=== PATIENT | female | born 1990 | race Two or more races ===

== ENCOUNTER 2018-01-13 23:10 | Emergency (ER) | payer SELFPAY ==
[~2018-01-13] VITALS: Ht 160 cm; Wt 82.0 kg
[2018-01-14 02:02] LABS: CLARITY URINE CLEAR (CLEAR); COLOR URINE YELLOW (YELLOW); KETONES URINE TRACE (NEGATIVE); LEUKOCYTE ESTERASE URINE TRACE (NEGATIVE); NITRITE URINE NEGATIVE (NEGATIVE); OCCULT BLOOD URINE NEGATIVE (NEGATIVE); PROTEIN URINE TRACE (NEGATIVE); SPECIFIC GRAVITY URINE 1.033 (1.005-1.030); UROBILINOGEN URINE 0.2 E.U./dL (0.2-1.0)
[2018-01-14 03:59] VITALS: BP 103/58
== END 2018-01-14 04:01 | disposition home or self-care (01) ==
LOC: ER 01-14 00:23
DX: S40.212A Abrasion of left shoulder, initial encounter (principal); O23.41 Unspecified infection of urinary tract in pregnancy, first trimester; Z3A.01 Less than 8 weeks gestation of pregnancy; W01.0XXA Fall on same level from slipping, tripping and stumbling without subsequent striking against object, initial encounter; Y93.89 Activity, other specified; Y92.091 Bathroom in other non-institutional residence as the place of occurrence of the external cause
CPT/HCPCS: 76830; 76856; 81003; 81025; 99285